=== PATIENT | male | born 2000 | race African-American/Black ===

== ENCOUNTER 2024-03-13 21:06 | Emergency (ER) | payer MEDICAID, OTHER ==
[~2024-03-13] VITALS: Ht 177.8 cm; Wt 79.5 kg
[2024-03-13 21:19] VITALS: BP 127/78; PULSE 86; RESP 18; TEMP 98.7; O2SAT 98
== END 2024-03-14 00:54 | disposition home or self-care (01) ==
LOC: ER 21:06
DX: S06.0X1A Concussion with loss of consciousness of 30 minutes or less, initial encounter (principal); S13.4XXA Sprain of ligaments of cervical spine, initial encounter; V89.2XXA Person injured in unspecified motor-vehicle accident, traffic, initial encounter; Y93.I9 Activity, other involving external motion; Y92.488 Other paved roadways as the place of occurrence of the external cause; Y99.8 Other external cause status
CPT/HCPCS: 70450; 72125